=== PATIENT | female | born 1950 | race Asian ===

== ENCOUNTER 2022-12-14 17:23 | Inpatient (IN) | payer MEDICARE, OTHER ==
[~2022-12-14] VITALS: Ht 154.9 cm; Wt 46.3 kg
[2022-12-14] MEDS ORDERED: ASPI81TA31 PO (17:48)
[2022-12-14] MEDS ORDERED: AMLO-212 PO (17:48)
[2022-12-14] MEDS ORDERED: BISA10SU61 RC (17:48)
[2022-12-14] MEDS ORDERED: TRAM50TA2 PO (17:48)
[2022-12-14] MEDS ORDERED: ACET-2154 PO (17:48)
[2022-12-14] MEDS ORDERED: QUET25TA PO (17:48)
[2022-12-14] MEDS ORDERED: MELA3CAP2 PO (17:48)
[2022-12-14] MEDS ORDERED: MAGN400O6 PO (17:48)
[2022-12-14] MEDS ORDERED: NA P133E RC (17:48)
[2022-12-14 18:21] LABS: BASOPHILS # (AUTO) 0.1 K/UL (0.0-0.2); BASOPHILS % (AUTO) 1.4 % (0.0-2.0); EOSINOPHILS # (AUTO) 0.2 K/uL (0.0-0.7); EOSINOPHILS % (AUTO) 3.2 % (0.0-7.0); HEMATOCRIT 39.2 % (31.2-41.9); HEMOGLOBIN 12.9 g/dL (10.9-14.3); LYMPHOCYTES # (AUTO) 1.2 K/uL (0.8-4.8); LYMPHOCYTES % (AUTO) 16.7 % (20.5-51.5); MEAN CORPUSCULAR HGB CONC 33 g/dL (32.3-35.6); MEAN CORPUSCULAR VOLUME 94.3 fL (75.5-95.3); MONOCYTES # (AUTO) 0.3 K/uL (0.1-1.30); NEUTROPHILS # (AUTO) 5.1 K/uL (1.8-8.9); NEUTROPHILS % (AUTO) 73.7 % (38.5-71.5); PLATELET COUNT (AUTO) 360 K/uL (179-408); RED BLOOD CELL COUNT(AUTO) 4.16 MIL/uL (3.63-4.92); RED CELL DISTRIBUTION WIDTH 12.3 % (12.3-17.7)
[2022-12-14 18:26] LABS: CALCIUM 9.2 mg/dL (8.5-10.1); CARBON DIOXIDE 29 mmol/L (21-32); CHLORIDE 100 mmol/L (98-107); CREATININE 0.7 mg/dL (0.6-1.3); GLUCOSE 136 mg/dL (74-106); POTASSIUM 3.8 mmol/L (3.5-5.1); SODIUM SERUM 138 mmol/L (136-145); UREA NITROGEN, BLOOD 10 mg/dL (7-18)
[2022-12-14 18:31] LABS: DIFFERENTIAL COMMENT 1
[2022-12-14 18:32] LABS: ALANINE AMINOTRANSFERASE 19 U/L (14-59); ALBUMIN 3.6 g/dL (3.4-5.0); ALKALINE PHOSPHATASE 191 U/L (50-136); ASPARTATE AMINOTRANSFERASE 12 U/L (15-37); BILIRUBIN,DIRECT 0.1 mg/dL (0.0-0.2); BILIRUBIN,TOTAL 0.4 mg/dL (0.2-1.0); TOTAL PROTEIN, SERUM 7.1 g/dL (6.4-8.2)
[2022-12-14 18:33] LABS: ACETAMINOPHEN < 10.0 ug/mL (10-30)
[2022-12-14 18:41] LABS: ETHANOL < 3 MG/DL (0-10)
[2022-12-14 21:20] VITALS: BP 150/59; TEMP 98.1; O2SAT 100
[2022-12-14] MEDS ORDERED: BLOOD SUGAR DIAGNOSTIC 1 EACH STRIP VI ONE (21:30)
[2022-12-14] MEDS ORDERED: ACETAMINOPHEN 325 MG TABLET PO PRN ×2 (21:30→22:45)
[2022-12-14] MEDS ORDERED: MAG HYDROX/AL HYDROX/SIMETH 30 ML LIQUID UDC PO PRN (21:30)
[2022-12-14] MEDS ORDERED: CLONAZEPAM 0.5 MG TABLET PO PRN (21:30)
[2022-12-14] MEDS ORDERED: TEMAZEPAM 7.5 MG CAPSULE PO PRN (21:30)
[2022-12-14] MEDS ORDERED: MAGNESIUM HYDROXIDE 30 ML LIQUID UDC PO PRN ×2 (21:30→22:30)
[2022-12-14] MEDS ORDERED: ACETAMINOPHEN 325 MG TABLET-SA PATIENTS-PAIN ONLY PO PRN (22:30)
[2022-12-14] MEDS ORDERED: BISACODYL 10 MG SUPP.RECT RC PRN (22:30)
[2022-12-14] MEDS ORDERED: TRAMADOL HCL 50 MG TABLET PO PRN (22:30)
[2022-12-15] MEDS ORDERED: ACETAMINOPHEN 325 MG TABLET PO PRN (01:15)
[2022-12-15] MEDS ORDERED: MELATONIN 3 MG TABLET PO PRN (01:15)
[2022-12-15] MEDS ORDERED: MAGNESIUM HYDROXIDE 30 ML LIQUID UDC PO PRN (01:15)
[2022-12-15 07:30] VITALS: BP 135/75; TEMP 98; O2SAT 100
[2022-12-15] MEDS: AMLODIPINE 5 MG TABLET PO SCH (09:00)
[2022-12-15] MEDS: ASPIRIN 81 MG TAB.CHEW PO SCH (09:00)
[2022-12-15] MEDS ORDERED: VALPROIC ACID 250 MG/5 ML LIQUID UDC GT SCH (09:00)
[2022-12-15] MEDS: DIVALPROEX SPRINKLE 125 MG CAP.SPRINK PO SCH ×2 (09:31→21:03)
[2022-12-15 15:42] VITALS: BP 124/51; TEMP 98; O2SAT 98
[2022-12-15 20:08] VITALS: BP 117/56; TEMP 98.1; O2SAT 99
[2022-12-15] MEDS: QUETIAPINE FUMARATE 25 MG TABLET PO SCH (21:03)
[2022-12-16 07:45] VITALS: BP 137/63; TEMP 98.5; O2SAT 96
[2022-12-16] MEDS: ASPIRIN 81 MG TAB.CHEW PO SCH (08:56)
[2022-12-16] MEDS: AMLODIPINE 5 MG TABLET PO SCH (08:56)
[2022-12-16] MEDS: DIVALPROEX SPRINKLE 125 MG CAP.SPRINK PO SCH ×2 (08:57→20:21)
[2022-12-16 16:13] VITALS: BP 117/61; TEMP 98.2; O2SAT 96
[2022-12-16] MEDS: SHARK LIVER OIL/PETROLAT OINT 60 GM TUBE RC SCH (17:08)
[2022-12-16] MEDS: QUETIAPINE FUMARATE 25 MG TABLET PO SCH (20:21)
[2022-12-16 22:00] VITALS: BP 153/68; TEMP 97.8; O2SAT 98
[2022-12-17 08:17] VITALS: BP 132/74; TEMP 98.1; O2SAT 98
[2022-12-17] MEDS: DIVALPROEX SPRINKLE 125 MG CAP.SPRINK PO SCH ×3 (09:58→22:24)
[2022-12-17] MEDS: ASPIRIN 81 MG TAB.CHEW PO SCH (09:58)
[2022-12-17] MEDS: AMLODIPINE 5 MG TABLET PO SCH (09:58)
[2022-12-17] MEDS: SHARK LIVER OIL/PETROLAT OINT 60 GM TUBE RC SCH ×2 (09:59→17:31)
[2022-12-17 16:20] VITALS: BP 107/55; TEMP 98; O2SAT 98
[2022-12-17] MEDS: METFORMIN HCL 500 MG TABLET PO SCH (17:31)
[2022-12-17 19:51] VITALS: BP 119/59; TEMP 98.1; O2SAT 99
[2022-12-17] MEDS: QUETIAPINE FUMARATE 25 MG TABLET PO SCH (22:24)
[2022-12-18 07:55] VITALS: BP 122/83; TEMP 98; O2SAT 98
[2022-12-18] MEDS: ASPIRIN 81 MG TAB.CHEW PO SCH (08:31)
[2022-12-18] MEDS: AMLODIPINE 5 MG TABLET PO SCH (08:32)
[2022-12-18] MEDS: METFORMIN HCL 500 MG TABLET PO SCH ×2 (08:32→17:12)
[2022-12-18] MEDS: DIVALPROEX SPRINKLE 125 MG CAP.SPRINK PO SCH ×3 (08:32→20:46)
[2022-12-18] MEDS: SHARK LIVER OIL/PETROLAT OINT 60 GM TUBE RC SCH ×2 (08:33→17:13)
[2022-12-18 16:05] VITALS: BP 107/57; TEMP 98.1; O2SAT 97
[2022-12-18 20:03] VITALS: BP 122/61; TEMP 98.2; O2SAT 99
[2022-12-18] MEDS: QUETIAPINE FUMARATE 25 MG TABLET PO SCH (20:46)
[2022-12-19] MEDS: DIVALPROEX SPRINKLE 125 MG CAP.SPRINK PO SCH ×3 (09:03→20:02)
[2022-12-19] MEDS: METFORMIN HCL 500 MG TABLET PO SCH ×2 (09:03→17:13)
[2022-12-19] MEDS: AMLODIPINE 5 MG TABLET PO SCH (09:03)
[2022-12-19] MEDS: ASPIRIN 81 MG TAB.CHEW PO SCH (09:04)
[2022-12-19] MEDS: SHARK LIVER OIL/PETROLAT OINT 60 GM TUBE RC SCH ×2 (09:04→17:13)
[2022-12-19 09:43] VITALS: BP 131/52; TEMP 98.2; O2SAT 96
[2022-12-19 15:34] VITALS: BP 106/69; TEMP 98; O2SAT 96
[2022-12-19 19:41] VITALS: BP 131/56; TEMP 98.1; O2SAT 100
[2022-12-19] MEDS: QUETIAPINE FUMARATE 25 MG TABLET PO SCH (20:02)
[2022-12-20 07:46] VITALS: BP 113/58; TEMP 97.8; O2SAT 99
[2022-12-20] MEDS: METFORMIN HCL 500 MG TABLET PO SCH ×2 (08:43→17:05)
[2022-12-20] MEDS: ASPIRIN 81 MG TAB.CHEW PO SCH (08:43)
[2022-12-20] MEDS: AMLODIPINE 5 MG TABLET PO SCH (08:43)
[2022-12-20] MEDS: DIVALPROEX SPRINKLE 125 MG CAP.SPRINK PO SCH ×3 (08:44→20:13)
[2022-12-20] MEDS: SHARK LIVER OIL/PETROLAT OINT 60 GM TUBE RC SCH ×2 (08:44→17:06)
[2022-12-20 15:25] VITALS: BP 111/69; TEMP 98.2; O2SAT 100
[2022-12-20 20:00] VITALS: BP 132/77; TEMP 98.3; O2SAT 98
[2022-12-20] MEDS: QUETIAPINE FUMARATE 25 MG TABLET PO SCH (20:14)
[2022-12-21 08:00] VITALS: BP 121/56; TEMP 97.6; O2SAT 97
[2022-12-21] MEDS: AMLODIPINE 5 MG TABLET PO SCH (08:20)
[2022-12-21] MEDS: DIVALPROEX SPRINKLE 125 MG CAP.SPRINK PO SCH ×3 (08:20→20:46)
[2022-12-21] MEDS: ASPIRIN 81 MG TAB.CHEW PO SCH (08:20)
[2022-12-21] MEDS: SHARK LIVER OIL/PETROLAT OINT 60 GM TUBE RC SCH ×2 (08:20→16:19)
[2022-12-21] MEDS: METFORMIN HCL 500 MG TABLET PO SCH ×2 (08:20→17:10)
[2022-12-21 15:58] VITALS: BP 127/55; TEMP 97.2; O2SAT 96
[2022-12-21 19:57] VITALS: BP 128/56; TEMP 97.7; O2SAT 96
[2022-12-21] MEDS: QUETIAPINE FUMARATE 25 MG TABLET PO SCH (20:46)
[2022-12-22 08:04] VITALS: BP 123/58; TEMP 98; O2SAT 98
[2022-12-22] MEDS: ASPIRIN 81 MG TAB.CHEW PO SCH (08:32)
[2022-12-22] MEDS: DIVALPROEX SPRINKLE 125 MG CAP.SPRINK PO SCH ×3 (08:32→21:05)
[2022-12-22] MEDS: AMLODIPINE 5 MG TABLET PO SCH (08:32)
[2022-12-22] MEDS: METFORMIN HCL 500 MG TABLET PO SCH ×2 (08:32→17:20)
[2022-12-22] MEDS: SHARK LIVER OIL/PETROLAT OINT 60 GM TUBE RC SCH ×2 (08:33→17:21)
[2022-12-22 16:21] VITALS: BP 139/54; TEMP 97.8; O2SAT 99
[2022-12-22 20:00] VITALS: BP 131/43; TEMP 97.9; O2SAT 100
[2022-12-22] MEDS: QUETIAPINE FUMARATE 25 MG TABLET PO SCH (21:05)
[2022-12-23] MEDS: DIVALPROEX SPRINKLE 125 MG CAP.SPRINK PO SCH ×3 (08:09→21:15)
[2022-12-23] MEDS: METFORMIN HCL 500 MG TABLET PO SCH ×2 (08:09→17:41)
[2022-12-23] MEDS: ASPIRIN 81 MG TAB.CHEW PO SCH (08:09)
[2022-12-23 08:15] VITALS: BP 117/53; TEMP 97.9; O2SAT 99
[2022-12-23] MEDS: AMLODIPINE 5 MG TABLET PO SCH (09:00)
[2022-12-23] MEDS: SHARK LIVER OIL/PETROLAT OINT 60 GM TUBE RC SCH ×2 (09:25→17:41)
[2022-12-23 16:17] VITALS: BP 117/70; TEMP 98; O2SAT 98
[2022-12-23 20:43] VITALS: BP 134/62; TEMP 97.8; O2SAT 98
[2022-12-23] MEDS: QUETIAPINE FUMARATE 25 MG TABLET PO SCH (21:15)
[2022-12-24 07:45] LABS: BASOPHILS % (AUTO) 0.5 % (0.0-2.0); EOSINOPHILS # (AUTO) 0.1 K/uL (0.0-0.7); EOSINOPHILS % (AUTO) 3.4 % (0.0-7.0); HEMATOCRIT 34.2 % (31.2-41.9); HEMOGLOBIN 11.6 g/dL (10.9-14.3); LYMPHOCYTES # (AUTO) 1.3 K/uL (0.8-4.8); LYMPHOCYTES % (AUTO) 30.7 % (20.5-51.5); MEAN CORPUSCULAR HEMOGLOBIN 31.6 uug (24.7-32.8); MEAN CORPUSCULAR HGB CONC 34 g/dL (32.3-35.6); MEAN CORPUSCULAR VOLUME 92.8 fL (75.5-95.3); MONOCYTES # (AUTO) 0.3 K/uL (0.1-1.30); NEUTROPHILS # (AUTO) 2.5 K/uL (1.8-8.9); NEUTROPHILS % (AUTO) 59.4 % (38.5-71.5); PLATELET COUNT (AUTO) 223 K/uL (179-408); RED BLOOD CELL COUNT(AUTO) 3.68 MIL/uL (3.63-4.92); RED CELL DISTRIBUTION WIDTH 12.4 % (12.3-17.7); WHITE BLOOD COUNT (AUTO) 4.2 K/uL (3.8-11.8)
[2022-12-24 08:01] LABS: DIFFERENTIAL COMMENT 1
[2022-12-24 08:09] LABS: THYROID STIMULATING HORMONE 5.396 mIU/mL (0.358-3.740)
[2022-12-24 08:28] LABS: ALANINE AMINOTRANSFERASE 21 U/L (14-59); ALBUMIN 2.9 g/dL (3.4-5.0); ALKALINE PHOSPHATASE 175 U/L (50-136); ASPARTATE AMINOTRANSFERASE 23 U/L (15-37); BILIRUBIN,TOTAL 0.3 mg/dL (0.2-1.0); CALCIUM 8.3 mg/dL (8.5-10.1); CARBON DIOXIDE 30 mmol/L (21-32); CHLORIDE 106 mmol/L (98-107); CREATININE 0.7 mg/dL (0.6-1.3); GLUCOSE 106 mg/dL (74-106); MAGNESIUM 2.1 mg/dL (1.8-2.4); PHOSPHOROUS 3.5 mg/dL (2.5-4.9); POTASSIUM 3.4 mmol/L (3.5-5.1); SODIUM SERUM 143 mmol/L (136-145); UREA NITROGEN, BLOOD 13 mg/dL (7-18)
[2022-12-24] MEDS: AMLODIPINE 5 MG TABLET PO SCH (08:37)
[2022-12-24] MEDS: ASPIRIN 81 MG TAB.CHEW PO SCH (08:37)
[2022-12-24] MEDS: METFORMIN HCL 500 MG TABLET PO SCH ×2 (08:38→17:11)
[2022-12-24] MEDS: DIVALPROEX SPRINKLE 125 MG CAP.SPRINK PO SCH ×3 (08:38→20:40)
[2022-12-24] MEDS: SHARK LIVER OIL/PETROLAT OINT 60 GM TUBE RC SCH ×2 (08:39→17:10)
[2022-12-24 08:56] VITALS: BP 120/55; TEMP 98.2; O2SAT 98
[2022-12-24] MEDS ORDERED: POTASSIUM CHLORIDE 20 MEQ TAB.PRT.SR PO ONE (14:15)
[2022-12-24 16:27] VITALS: BP 123/56; TEMP 98.1; O2SAT 98
[2022-12-24 20:35] VITALS: BP 115/49; TEMP 98; O2SAT 98
[2022-12-24] MEDS: QUETIAPINE FUMARATE 25 MG TABLET PO SCH (20:40)
[2022-12-25 08:43] VITALS: BP 111/58; TEMP 98; O2SAT 98
[2022-12-25] MEDS: DIVALPROEX SPRINKLE 125 MG CAP.SPRINK PO SCH ×3 (08:51→20:07)
[2022-12-25] MEDS: AMLODIPINE 5 MG TABLET PO SCH (08:51)
[2022-12-25] MEDS: ASPIRIN 81 MG TAB.CHEW PO SCH (08:51)
[2022-12-25] MEDS: METFORMIN HCL 500 MG TABLET PO SCH ×2 (08:52→17:07)
[2022-12-25] MEDS: SHARK LIVER OIL/PETROLAT OINT 60 GM TUBE RC SCH ×2 (08:52→17:08)
[2022-12-25 16:11] VITALS: BP 125/55; TEMP 98; O2SAT 98
[2022-12-25 20:00] VITALS: BP 145/58; TEMP 97.8; O2SAT 98
[2022-12-25] MEDS: QUETIAPINE FUMARATE 25 MG TABLET PO SCH (20:07)
[2022-12-26 07:30] VITALS: BP 131/62; TEMP 98.2; O2SAT 98
[2022-12-26] MEDS: DIVALPROEX SPRINKLE 125 MG CAP.SPRINK PO SCH ×3 (08:31→20:51)
[2022-12-26] MEDS: ASPIRIN 81 MG TAB.CHEW PO SCH (08:31)
[2022-12-26] MEDS: METFORMIN HCL 500 MG TABLET PO SCH ×2 (08:31→17:43)
[2022-12-26] MEDS: AMLODIPINE 5 MG TABLET PO SCH (08:37)
[2022-12-26] MEDS: SHARK LIVER OIL/PETROLAT OINT 60 GM TUBE RC SCH ×2 (08:38→17:00)
[2022-12-26 15:33] VITALS: BP 111/45; TEMP 98.2; O2SAT 100
[2022-12-26 20:00] VITALS: BP 155/99; TEMP 97.8; O2SAT 96
[2022-12-26] MEDS: QUETIAPINE FUMARATE 25 MG TABLET PO SCH (20:51)
[2022-12-27 08:17] VITALS: BP 109/48; TEMP 98; O2SAT 99
[2022-12-27] MEDS: ASPIRIN 81 MG TAB.CHEW PO SCH (08:28)
[2022-12-27] MEDS: DIVALPROEX SPRINKLE 125 MG CAP.SPRINK PO SCH ×2 (08:28→13:16)
[2022-12-27] MEDS: METFORMIN HCL 500 MG TABLET PO SCH ×2 (08:29→17:19)
[2022-12-27] MEDS: AMLODIPINE 5 MG TABLET PO SCH (08:30)
[2022-12-27] MEDS: SHARK LIVER OIL/PETROLAT OINT 60 GM TUBE RC SCH ×2 (08:32→17:19)
[2022-12-27 15:46] VITALS: BP 109/52; TEMP 98; O2SAT 99
== END 2022-12-27 18:00 | DRG 885 ==
LOC: ER 17:33 → GPS 21:20
PROVIDERS: ADMIT Psychiatry & Neurology Psychiatry; ATTEND Internal Medicine
DX: F39 Unspecified mood [affective] disorder (principal); F01.54 Vascular dementia, unspecified severity, with anxiety; E44.0 Moderate protein-calorie malnutrition; F01.53 Vascular dementia, unspecified severity, with mood disturbance; F01.518 Vascular dementia, unspecified severity, with other behavioral disturbance; Z68.1 Body mass index [BMI] 19.9 or less, adult; F29 Unspecified psychosis not due to a substance or known physiological condition; J44.9 Chronic obstructive pulmonary disease, unspecified; G89.4 Chronic pain syndrome; E11.9 Type 2 diabetes mellitus without complications; E03.8 Other specified hypothyroidism; Z20.822 Contact with and (suspected) exposure to COVID-19; E88.09 Other disorders of plasma-protein metabolism, not elsewhere classified; E87.6 Hypokalemia; E78.5 Hyperlipidemia, unspecified; F32.A Depression, unspecified; K21.9 Gastro-esophageal reflux disease without esophagitis; R62.7 Adult failure to thrive; M19.90 Unspecified osteoarthritis, unspecified site; Z86.16 Personal history of COVID-19; I10 Essential (primary) hypertension; Z86.15 Personal history of latent tuberculosis infection; Z73.6 Limitation of activities due to disability
CPT/HCPCS: 36415; 70450; 71045; 80164; 83735; 84100; 84443; 85025; 93005; A9150; G0480